=== PATIENT | male | born 1935 | race Caucasian/White ===

== ENCOUNTER → 2017-09-25 | Day surgery (SDC) | payer BC ==
[2017-09-11 08:56] VITALS: BMI 25.0
[~2017-09-25] VITALS: Ht 172.7 cm; Wt 75.0 kg
[~2017-09-25] MED LIST: ACET-1256 PO; ASPI81TA28 PO; ATOR-26 PO; ATROPINE SULFATE 0.1 MG/ML 5ML SYR IV PRN; CIPROFLOXACIN 400MG / 200ML D5W IV ONE; CIPROFLOXACIN 400MG / 200ML D5W ONE; CLOP1TAB15 PO; DLN100 PO; EpHEDrine SULFATE INJ 50 MG/ML AMP IV PRN; FENTANYL CITRATE INJ 50 MCG/1 ML 2 ML VIAL IV PRN; FENTANYL CITRATE INJ 50 MCG/1 ML 2 ML VIAL ONE; FOLIC ACID PO; GLIP-197 PO; INSULIN HUMAN REGULAR PER UNIT 4 UNITS in SYRINGE 0 ML IV STA; INSULIN NOVOLOG SC; LEVO25TA5 PO; LINA1TAB PO; MIDAZOLAM HCL 1 MG/ML 2ML VIAL ONE; NovoLIN-R INSULIN PER UNIT CHARGE ONE; ONDANSETRON INJ 2 MG/ML 2 ML VIAL IV PRN; PANT1TAB3 PO; PHEN1TAB PO; PHENYLEPHRINE HCL INJ 10 MG/ML VIAL ONE; PROPOFOL IV EMULSION 10 MG/ML 20 ML VIAL IV ONE; VITACAP26 PO; VITAMIN B PO; VITAMIN D PO; WARF6TAB5 PO; WARF7.5T4 PO; ZOLP5TAB6 PO; metoprolol PO
[2017-09-25 06:30] VITALS: BP 156/63; PULSE 100; TEMP 36.6; O2SAT 100; Ht 172.7 cm; Wt 75.0 kg
[2017-09-25 07:12] LABS: INR 1.1 (0.9-1.1); PTT PATIENT 24.5 SECONDS (21.0-31.0)
--- NOTE | 2017-09-25 07:56 | Endo History and Physical ---
History & Physical Date of Service: Sep 25, 2017. 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 He has a history of a MALT lymphoma and is presently without any evidence of disease. He has no particular symptoms today. There is no history of pancreatitis. Past Surgical History Hx Cardiac Surgery: Yes (CARDIAC CATH X 5-TOTAL 4 STENTS, AVR/CABG 3 VESSEL) Hx Abdominal Surgery: Yes (GB SURG) Hx Post-Op Nausea and Vomiting: No Hx Cancer Surgery: No Hx Thoracic Surgery: No Hx Orthopedic: Yes (LUMBAR SURG, ORIF L HIP ) Hx Urinary Tract Surgery: No Social History Smoking Status: Former Smoker Hx Substance Use: No Hx Alcohol Use: Yes (OCC WINE) Allergies Coded Allergies: No Known Allergies (Unverified , 09/25/17) Current Medications Reported Home Medications Medications Dose Route/Sig Max Daily Dose Days Date Category Dose Instructions Levothyroxine Sodium 25 Mcg Tab 1 Tab PO DAILY 30 09/25/17 Reported [metoprolol] 25 Mg PO BID 09/25/17 Reported Tradjenta (Linagliptin) 5 Mg Tab 5 Mg PO DAILY 90 09/25/17 Reported Jantoven (Warfarin Sodium) 7.5 Mg Tab 7 Mg PO Q2D 09/25/17 Reported Glipizide Er (Glipizide) 5 Mg Tab 1 Tab PO QAM 90 09/11/17 Reported [Folic Acid] 1 Tab PO QAM 09/11/17 Reported [Vitamin D ] 1 Tab PO QPM 09/11/17 Reported Tylenol (Acetaminophen) 500 Mg Tab 500 Mg PO PRN 09/11/17 Reported Vitamin C (Vitamins C & E) 1 Cap Cap 1 Tab PO QAM 09/11/17 Reported [Vitamin B] 1 Tab PO QAM 09/11/17 Reported Dilantin (Phenytoin Sodium) 100 Mg Cap 2 Cap PO BID 30 09/11/17 Reported Phenobarbital 100 Mg Tab 100 Mg PO QPM 09/11/17 Reported Protonix (Pantoprazole) 40 Mg Tab 40 Mg PO QPM 09/11/17 Reported Zolpidem Tartrate 5 Mg Tab 1 Tab PO HS 30 09/11/17 Reported Lipitor (Atorvastatin Calcium) 80 Mg Tab 80 Mg PO QAM 09/11/17 Reported Plavix (Clopidogrel Bisulfate) 75 Mg Tab 75 Mg PO QPM 09/11/17 Reported PT WILL CHECK WITH PCP Jantoven (Warfarin Sodium) 6 Mg Tab 6 Mg PO Q2D 09/11/17 Reported PT WILL CHECK WITH PCP Aspirin Ec (Aspirin) 81 Mg Tab 81 Mg PO QPM 09/11/17 Reported [Insulin Novolog] 10 Units SC SLIDING SCALE 09/11/17 Reported Vital Signs Weight (Kilograms): 75.00 Height (Feet): 5 Height (Inches): 8 Date Time Temp Pulse Resp B/P (MAP) Pulse Ox O2 Delivery O2 Flow Rate FiO2 09/25/17 06:30 36.6 100 20 156/63 (94) 100 Room Air Physical Exam General Appearance: no apparent distress Respiratory/Chest: Auscultation: breath sounds normal Cardiovascular: Heart Auscultation: murmur Abdomen: Inspection & Palpation: soft Assessment and Plan Endoscopic ultrasound to evaluate for history of a 2 cm pancreatic head cyst. We have discussed the risks of the procedure to include bleeding, infection, perforation, pain and need for follow-up studies.
--- NOTE | 2017-09-25 08:52 | [facility] Post Operative Brief Note ---
Immediate Operative Summary Operative Date Sep 25, 2017. Pre-Operative Diagnosis Pancreatic cysts Post-Operative Diagnosis 15 mm pancreatic neck cyst Procedure(s) Performed EUS iw FNA Surgeon Dr. Leandro Olivarez Fibre Technologist Surgeon(s) none Estimated Blood Loss 0 Findings Consistent with Post-Op Diagnosis Specimens Panncreatic cyst fluid Drains None Anesthesia Type MAC Complication(s) none Disposition Accompanied Pt To Recover: no Disposition: Recovery Room / PACU
--- NOTE | 2017-09-25 09:05 | Discharge Instructions ---
Endoscopy Patient Instructions Date / Procedure(s) Performed Sep 25, 2017. Other (Endoscopic ultrasound) Allergy Information Coded Allergies: No Known Allergies (Unverified , 09/25/17) Discharge Date / Findings Sep 25, 2017. 15 mm pancreatic cyst Medication Instructions Reported Home Medications Medications Dose Route/Sig Max Daily Dose Days Date Category Dose Instructions Levothyroxine Sodium 25 Mcg Tab 1 Tab PO DAILY 30 09/25/17 Reported [metoprolol] 25 Mg PO BID 09/25/17 Reported Tradjenta (Linagliptin) 5 Mg Tab 5 Mg PO DAILY 90 09/25/17 Reported Jantoven (Warfarin Sodium) 7.5 Mg Tab 7 Mg PO Q2D 09/25/17 Reported Glipizide Er (Glipizide) 5 Mg Tab 1 Tab PO QAM 90 09/11/17 Reported [Folic Acid] 1 Tab PO QAM 09/11/17 Reported [Vitamin D ] 1 Tab PO QPM 09/11/17 Reported Tylenol (Acetaminophen) 500 Mg Tab 500 Mg PO PRN 09/11/17 Reported Vitamin C (Vitamins C & E) 1 Cap Cap 1 Tab PO QAM 09/11/17 Reported [Vitamin B] 1 Tab PO QAM 09/11/17 Reported Dilantin (Phenytoin Sodium) 100 Mg Cap 2 Cap PO BID 30 09/11/17 Reported Phenobarbital 100 Mg Tab 100 Mg PO QPM 09/11/17 Reported Protonix (Pantoprazole) 40 Mg Tab 40 Mg PO QPM 09/11/17 Reported Zolpidem Tartrate 5 Mg Tab 1 Tab PO HS 30 09/11/17 Reported Lipitor (Atorvastatin Calcium) 80 Mg Tab 80 Mg PO QAM 09/11/17 Reported Plavix (Clopidogrel Bisulfate) 75 Mg Tab 75 Mg PO QPM 09/11/17 Reported PT WILL CHECK WITH PCP Jantoven (Warfarin Sodium) 6 Mg Tab 6 Mg PO Q2D 09/11/17 Reported PT WILL CHECK WITH PCP Aspirin Ec (Aspirin) 81 Mg Tab 81 Mg PO QPM 09/11/17 Reported [Insulin Novolog] 10 Units SC SLIDING SCALE 09/11/17 Reported Provider Instructions Activity Restrictions - No exercising or heavy lifting for 24 hours. - Do not drink alcohol the day of the procedure. - Do not drive a car or operate machinery until the day after the procedure. - Do not make any important decisions or sign important papers in 24 hours after the procedure. Following Day: - Return to full activity which may include returning to work/school. Diet Start your diet with liquids and light foods (jello, soup, juice, toast). Then eat your usual diet if not nauseated. Treatment For Common After Affects For mild abdominal pain, bloating, or excessive gas: - Rest - Eat lightly - Lie on right side Follow-Up Information Await cytology results Ciprofloxacin twice daily for 3 days Will likely suggest MRI or CT in 12 months Anesthesia Information What You Should Know You have had a procedure that required some medicine to reduce anxiety and discomfort. This treatment is called moderate sedation. After receiving the treatment, you may be sleepy, but you will be able to breathe on your own. The effects of the treatment may last for several hours. Follow these instructions along with Activity/Diet recommendations noted above: * Do NOT do anything where dizziness or clumsiness would be dangerous. * Rest quietly at home today, then you can be up and about tomorrow. * Have a responsible person stay with you the rest of today. * You may have had an I.V. today. If so, you may take the dressing off later today. Recommendations Call your doctor if: * Trouble breathing * Continuous vomiting for more than 24 hours * Temperature above 101 degrees * Severe abdominal pain or bloating * Pain not relieved by pain medicine ordered * There is increased drainage or redness from any incision * A large amount of rectal bleeding greater than 2-3 tablespoons. (If you had a polyp/s removed or have hemorrhoids, a small amount of blood - from the rectum is to be expected.) * You have any unanswered questions or concerns. IN THE EVENT OF A SERIOUS EMERGENCY, GO TO THE NEAREST EMERGENCY ROOM Your discharge instructions were prepared by provider Leandro Olivarez. Patient Instructions Signature Page Josh Day Patient (or Guardian) Signature/Date: I have read and understand the instructions given to me by my caregivers. Caregiver/RN/Doctor Signature/Date: The above-named patient and/or guardian has received patient instructions on this date. + Original Patient Signature Page (only) stays with chart. Please make copy for patient.
--- NOTE | 2017-09-25 09:12 | GI REPORT ---
Procedure Date: 09/25/2017 8:08 AM Procedure: Upper EUS Indications: Pancreatic cyst on MRCP Medicines: Monitored Anesthesia Care Complications: No immediate complications. Estimated blood loss: Minimal. Estimated Blood Loss: Estimated blood loss was minimal. Procedure: Pre-Anesthesia Assessment: - Prior to the procedure, a History and Physical was performed, and patient medications, allergies and sensitivities were reviewed. The patient's tolerance of previous anesthesia was reviewed. - The risks and benefits of the procedure and the sedation options and risks were discussed with the patient. All questions were answered and informed consent was obtained. - Patient identification and proposed procedure were verified prior to the procedure by the physician, the nurse and the cinder snapper. The procedure was verified in the procedure room. - Pre-procedure physical examination revealed no contraindications to sedation. - ASA Grade Assessment: III - A patient with severe systemic disease. - After reviewing the risks and benefits, the patient was deemed in satisfactory condition to undergo the procedure. - The anesthesia plan was to use monitored anesthesia care (MAC). - Immediately prior to administration of medications, the patient was re-assessed for adequacy to receive sedatives. - The heart rate, respiratory rate, oxygen saturations, blood pressure, adequacy of pulmonary ventilation, and response to care were monitored throughout the procedure. - The physical status of the patient was re-assessed after the procedure. After obtaining informed consent, the endoscope was passed under direct vision. Throughout the procedure, the patient's blood pressure, pulse, and oxygen saturations were monitored continuously. The Endosonoscope was introduced through the mouth, and advanced to the second part of duodenum. The upper EUS was accomplished without difficulty. The patient tolerated the procedure well. Findings: Endosonographic Finding : There was no sign of significant endosonographic abnormality in the ampulla. No masses were identified. There was no sign of significant endosonographic abnormality in the common bile duct. The maximum diameter of the duct was 5 mm. No stones, no biliary sludge and ducts of normal caliber were identified. There was no sign of significant endosonographic abnormality in the left lobe of the liver. Homogeneous parenchyma, no focal pathology and no masses were identified. No lymphadenopathy seen. On endosonographic examination, the left adrenal gland appeared mildly enlarged. It measured 14 mm by 15 mm in maximal cross-sectional diameter. There was no sign of significant endosonographic abnormality in the pancreatic head, pancreatic body, pancreatic tail and main pancreatic duct. The pancreatic duct measured up to 3 mm in diameter. No masses, the pancreatic duct was thin in caliber. A hypoechoic lesion suggestive of a cyst was identified in the pancreatic neck. It is not in obvious communication with the pancreatic duct. The lesion measured 15 mm by 11 mm in maximal cross-sectional diameter. There were 2 compartments thinly septated. The outer wall of the lesion was not seen. There was no associated mass. There was no internal debris within the fluid-filled cavity. Diagnostic needle aspiration for fluid was performed. Color Doppler imaging was utilized prior to needle puncture to confirm a lack of significant vascular structures within the needle path. Two passes were made with the 22 gauge needle using a transgastric approach. A stylet was used. The amount of fluid collected was 0.5 mL. The fluid was clear, serous and viscous. Sample(s) were sent for cytology. Estimated blood loss was minimal. Impression: - Normal ampulla. - 5 mm common bile duct. - Normal left lobe of the liver. - 14 mm left adrenal gland (mildly enlarged). - There was no sign of significant pathology in the pancreatic head, pancreatic body, pancreatic tail and main pancreatic duct. - A 15 mm cystic lesion was seen in the pancreatic neck. 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 Fine needle aspiration for fluid performed. Recommendation: - Discharge patient to home. - Advance diet as tolerated today. - Await cytology results. - Cipro (ciprofloxacin) 500 mg PO BID for 3 days. - Perform magnetic resonance imaging (MRI) with gadolinium in 1 year. Leandro Olivarez D.O. Leandro Olivarez, 09/25/2017 9:12:06 AM This report has been signed electronically. Note Initiated On: 09/25/2017 8:08 AM I attest to the content of the Intraoperative Record and orders documented therein, exceptions below
--- NOTE | 2017-09-25 09:20 | Anesthesiology Progress Note ---
Anesthesia Post Op Note Date & Time Sep 25, 2017 at 09:20 Vital Signs Pain Intensity: 0 Vital Signs Past 12 Hours Date Time Temp Pulse Resp B/P (MAP) Pulse Ox O2 Delivery O2 Flow Rate FiO2 09/25/17 09:15 36.5 75 16 121/60 100 Room Air 09/25/17 09:05 70 16 104/45 100 Room Air 09/25/17 08:56 36.5 72 16 100/44 100 Room Air 09/25/17 06:30 36.6 100 20 156/63 (94) 100 Room Air Notes Mental Status: alert / awake / arousable, participated in evaluation Pt Amnestic to Procedure: Yes Nausea / Vomiting: adequately controlled Pain: adequately controlled Airway Patency, RR, SpO2: stable & adequate BP & HR: stable & adequate Hydration State: stable & adequate Anesthetic Complications: no major complications apparent
[2017-09-25 09:31] VITALS: BP 137/63; PULSE 73; TEMP 36.4; O2SAT 100
[2017-09-25 09:54] VITALS: BP 143/69; PULSE 75; O2SAT 100
[2017-09-25 10:29] VITALS: BP 159/77; PULSE 78; TEMP 36.2; O2SAT 98
== END | disposition home or self-care (01) ==
LOC: C.ACU 06:12
PROVIDERS: ATTEND Internal Medicine Gastroenterology
DX: K86.2 Cyst of pancreas (principal); I25.10 Atherosclerotic heart disease of native coronary artery without angina pectoris; Z95.1 Presence of aortocoronary bypass graft; I48.91 Unspecified atrial fibrillation; I25.2 Old myocardial infarction; E11.9 Type 2 diabetes mellitus without complications; Z86.73 Personal history of transient ischemic attack (TIA), and cerebral infarction without residual deficits; Z98.890 Other specified postprocedural states; Z87.891 Personal history of nicotine dependence; Z79.899 Other long term (current) drug therapy; Z79.01 Long term (current) use of anticoagulants; Z79.82 Long term (current) use of aspirin